=== PATIENT | male | born 1995 | race Two or more races ===

== ENCOUNTER 2021-06-29 19:53 | Emergency (ER) | payer OTHER ==
[2021-06-29 20:27] VITALS: BP 119/80; PULSE 98; TEMP 98.1; BMI 17.6
[2021-06-29] MEDS ORDERED: ACETAMINOPHEN 500 MG TABLET (FP) PO ONE (20:32)
[2021-06-29] MEDS ORDERED: METHOCARBAMOL 500 MG TABLET PO ONE (20:32)
== END 2021-06-29 23:31 | disposition home or self-care (01) ==
LOC: JER 19:53
DX: M54.50 Low back pain, unspecified (principal); V89.2XXA Person injured in unspecified motor-vehicle accident, traffic, initial encounter; Y92.9 Unspecified place or not applicable
CPT/HCPCS: 70450-TC; 72070-TC-FY; 99284-25